=== PATIENT | female | born 1955 | race Hispanic/Latino ===

== ENCOUNTER 2017-11-05 14:04 | Emergency (ER) | payer BC ==
[2017-11-05 14:44] LABS: HEMATOCRIT 37.3 % (37.0-47.0); HEMOGLOBIN 12.8 g/dl (12.0-16.0); IMMATURE GRANULOCYTES 0.4 % (0.0-1.0); MEAN CELL VOLUME 90.1 fL CALC (80.0-100.0); MEAN CORPUSCULAR HGB 30.9 pG CALC (26.0-32.0); MEAN CORPUSCULAR HGB CONC 34.3 g/L CALC (32.0-36.0); NEUT# 6.17 thou/uL (2.00-7.15); RED BLOOD COUNT 4.14 mill/uL (4.20-5.60); RED CELL DISTRI WIDTH 12.5 % (11.5-15.5)
[2017-11-05 15:01] LABS: ALBUMIN 4.6 g/dL (3.2-5.0); ALKALINE PHOSPHATASE 66 u/l (38-126); ANION GAP 18 (6-22 (CALC)); BILIRUBIN, TOTAL 0.4 mg/dL (0.0-1.4); BUN 11 mg/dL (8-23); BUN/CREATININE RATIO 14 (12-20 (CALC)); CALCIUM 9.1 mg/dL (8.4-10.2); CARBON DIOXIDE 23 mmol/l (22-30); CHLORIDE 95 mmol/l (95-108); CREATININE 0.8 mg/dL (0.5-1.0); GFR > 60 ML/MIN (>=60 (CALC)); GFR FOR AFR.AMER. > 60 ML/MIN (>=60 (CALC)); GLUCOSE 118 mg/dL (82-115); POTASSIUM 3.4 mmol/l (3.5-5.1); SGOT/AST 55 u/l (9-36); SGPT/ALT 68 u/l (11-66); SODIUM 132 mmol/l (137-146); TOTAL PROTEIN 7.8 g/dL (6.3-8.2)
[2017-11-05 15:13] LABS: MYOGLOBIN 35 ng/mL (0 - 62)
[2017-11-05 15:18] LABS: INFLUENZA A POSITIVE (NONE DETECT); INFLUENZA B NONE DETECTED (NONE DETECT)
[2017-11-05] MEDS ORDERED: LEVOTHYROXIN100 MCG PO (15:48)
[2017-11-05] MEDS ORDERED: DILTIAZEM240 MG PO (15:49)
[2017-11-05] MEDS ORDERED: BLOOD PRESSURE PILL (15:50)
[2017-11-05 16:42] LABS: URINE BILIRUBIN - DIPSTICK NEGATIVE (NEGATIVE); URINE BLOOD DIPSTICK NEGATIVE (NEGATIVE); URINE COLOR YELLOW; URINE GLUCOSE - DIPSTICK NEGATIVE (NEGATIVE); URINE KETONE NEGATIVE (NEGATIVE); URINE LEUK ESTERASE NEGATIVE (NEGATIVE); URINE NITRITE - DIPSTICK NEGATIVE (Negative); URINE PROTEIN - DIPSTICK NEGATIVE (NEG-TRACE); URINE UROBILINOGEN - DIPSTICK 0.2 E.U./dL (0.2)
[2017-11-05 16:44] LABS: URINE CLARITY CLEAR
[2017-11-05] MEDS ORDERED: ASPIRIN 81 LOW81 MG PO (17:59)
[2017-11-05] MEDS ORDERED: TAM75CAP PO (17:59)
[2017-11-05 18:37] VITALS: BP 119/62
== END 2017-11-05 18:39 | disposition home or self-care (01) | DRG 153 ==
LOC: ED 14:04
PROVIDERS: Emergency Medicine
DX: J11.1 Influenza due to unidentified influenza virus with other respiratory manifestations (principal); I10 Essential (primary) hypertension

== ENCOUNTER 2019-06-08 07:42 | Day surgery (SDC) | payer MEDICARE, MEDICAID ==
[~2019-06-08] VITALS: Ht 160 cm; Wt 81.2 kg
[~2019-06-08 07:42] MED LIST: ASPIRIN 81 LOW81 MG PO; BLOOD PRESSURE PILL; DILTIAZEM240 MG PO; HYZAAR1 TA2 PO; LEVOTHYROXIN100 MCG PO; TAM75CAP PO
[2019-06-08 10:50] VITALS: BP 150/72
== END 2019-06-08 10:55 | disposition home or self-care (01) ==
LOC: ENDO 07:42
PROVIDERS: ATTEND Surgery
PROC: 0DBH8ZX Excision of Cecum, Via Natural or Artificial Opening Endoscopic, Diagnostic (ICD-10-PCS; principal; 2019-06-08)
DX: Z12.11 Encounter for screening for malignant neoplasm of colon (principal); D12.0 Benign neoplasm of cecum; K64.8 Other hemorrhoids; I10 Essential (primary) hypertension

== ENCOUNTER 2021-08-29 21:46 | Emergency (ER) | payer MEDICARE, MEDICAID ==
[~2021-08-29] VITALS: Ht 160 cm; Wt 81.0 kg
[2021-08-29 23:17] LABS: IMMATURE GRANULOCYTES 0.2 % (0.0-5.0); MEAN CELL VOLUME 91.9 fL CALC (80.0-100.0); MEAN CORPUSCULAR HGB CONC 33.7 g/dL CAL (32.0-36.0); NEUT# 6.5 thou/uL (2.00-7.15); RED BLOOD COUNT 4.84 mill/uL (4.20-5.60); RED CELL DISTRI WIDTH 13.7 % (11.5-15.5)
[2021-08-29 23:18] LABS: URINE BILIRUBIN - DIPSTICK NEGATIVE (NEGATIVE); URINE BLOOD DIPSTICK NEGATIVE (NEGATIVE); URINE COLOR YELLOW; URINE GLUCOSE - DIPSTICK NEGATIVE (NEGATIVE); URINE KETONE NEGATIVE (NEGATIVE); URINE LEUK ESTERASE NEGATIVE (NEGATIVE); URINE PROTEIN - DIPSTICK NEGATIVE (NEG-TRACE); URINE UROBILINOGEN - DIPSTICK 0.2 E.U./dL (0.2)
[2021-08-29 23:20] LABS: HEMATOCRIT 44.5 % (37.0-47.0)
[2021-08-29 23:26] LABS: URINE NITRITE - DIPSTICK NEGATIVE (Negative)
[2021-08-29 23:33] LABS: ALBUMIN 5.1 g/dL (3.2-5.0); ALKALINE PHOSPHATASE 88 u/l (38-126); ANION GAP 17 (6-22 (CALC)); BUN 23 mg/dL (8-23); BUN/CREATININE RATIO 33 (12-20 (CALC)); CARBON DIOXIDE 25 mmol/l (22-30); CHLORIDE 100 mmol/l (95-108); CREATININE 0.7 mg/dL (0.5-1.0); GFR > 60 ML/MIN (>=60 (CALC)); GFR FOR AFR.AMER. > 60 ML/MIN (>=60 (CALC)); LIPASE 132 u/l (23-300); MAGNESIUM 2.1 mg/dL (1.6-2.3); POTASSIUM 3.9 mmol/l (3.5-5.1); SGOT/AST 31 u/l (9-36); SODIUM 137 mmol/l (137-146); TOTAL PROTEIN 8.8 g/dL (6.3-8.2)
[2021-08-29 23:36] LABS: BILIRUBIN, TOTAL 0.7 mg/dL (0.0-1.4)
[2021-08-29 23:39] LABS: INTERNATIONAL NORMALIZED RATIO 0.9 RATIO (0.7-1.3); PROTHROMBIN TIME 9.9 SECONDS (9.0-12.5)
[2021-08-29] MEDS ORDERED: AMLODIPINE BESYL5 MG PO (23:57)
[2021-08-30 01:01] VITALS: BP 174/81
== END 2021-08-30 01:30 | disposition short-term general hospital (02) ==
LOC: ED 21:46
DX: R42 Dizziness and giddiness (principal); R79.89 Other specified abnormal findings of blood chemistry; Z20.822 Contact with and (suspected) exposure to COVID-19
CPT/HCPCS: Q9967